=== PATIENT | female | born 1965 | race Caucasian/White ===

== ENCOUNTER 2016-12-02 07:00 | Day surgery (SDC) | payer OTHER ==
[~2016-12-02] VITALS: Ht 170.2 cm; Wt 103.9 kg
[2016-12-02] VITALS (10 sets, daily range): BP systolic 116–145; BP diastolic 66–92; PULSE 71–84; RESP 14–16; O2SAT 96–98
[~2016-12-02 07:00] MED LIST: MULT-666 PO; NAPR220C11 PO
[2016-12-02] MEDS ORDERED: 0.9% Sodium Chloride 1,000 ML IV PRN (07:36)
[2016-12-02] MEDS ORDERED: fentaNYL-PF 50 mCg/mL 2 mL Inj IVPUSH PRN (07:40)
[2016-12-02] MEDS ORDERED: Sodium Chloride LOK Flush 10 mL Syringe IV PRN (07:40)
--- NOTE | 2016-12-02 13:20 | ENDO ---
[address] [address] ENDOSCOPY PROCEDURE PATIENT: PEYTON LEONE : 1965 MR#: [id number] ADMIT: 12/02/2016 JOB ID: [id number] DATE: 12/02/2016 OPERATION: 1. Esophagogastroduodenoscopy with biopsy. 2. Colonoscopy with biopsy. PREOPERATIVE DIAGNOSIS(ES): 1. Epigastric pain. 2. Diarrhea. POSTOPERATIVE DIAGNOSIS(ES): 1. Normal upper endoscopy, status post biopsy. 2. A 2 mm descending colon polyp, removed by cold biopsy forceps. ANESTHESIA: 1. Fentanyl 150 mcg. 2. Versed 7 mg IV administered. COMPLICATIONS: None. BLOOD LOSS: Minimal. DESCRIPTION OF PROCEDURE: After risks and benefits were explained to the patient, informed consent was obtained. After anesthesia administered, upper endoscope was inserted in mouth and intubated to the esophagus, stomach, second portion of duodenum, and mucosa carefully examined. After procedure was done, the scope was withdrawn and the procedure terminated. Colonoscope was inserted from the rectum to terminal ileum and mucosa carefully examined. Prep of the patient was excellent. After procedure was done, the scope withdrawn and procedure terminated. FINDINGS: Upon inspection of the esophagus, esophagus was normal without masses, ulcers, or lesions. Z-line located at 40 cm from incisors. Upon entering the stomach, the stomach was also normal without masses, ulcers, or lesions. Retroflexion was normal. Duodenal bulb, first and second portion were normal. Biopsies taken of duodenum, antrum, and body of stomach. Upon inspection of the anus, no masses, hemorrhoids, ulcers, or fissures were seen throughout the entire examination. There was a 2 mm ascending colon polyp removed by cold biopsy forceps. Biopsies taken internal and random colon. Retroflexion was normal. IMPRESSIONS: 1. Normal upper endoscopy, status post biopsy. 2. A 2 mm right ascending colon polyp removed by cold biopsy forceps. RECOMMENDATIONS: Await pathology results. If tubular adenoma, then repeat colonoscopy in five years. Follow up with Nickie Lee PA-C, as an outpatient in GI clinic.
--- NOTE | 2016-12-06 10:58 | PATH ---
SURGICAL PATHOLOGY Attending Physician:José Miguel Leslie MD CASE STATUS: Signed Out PATIENT NAME: PYETON LEONE PID: [id number] : 1965 DATE COLLECTED:12/02/2016 19:15 SPECIMEN: 1: Duodenum, Biopsy 2: Stomach, Antrum, Biopsy 3: Gastric, Biopsy 4: Ileum, Biopsy 5: Colon, Biopsy 6: Colon, Biopsy CLINICAL HISTORY: DIARRHEA 1). DUODENUM BIOPSY 2). ANTRUM BIOPSY 3). GASTRIC BODY BIOPSY 4). TERMIANL ILEUM BIOPSY 5). ASCENDING COLON POLYP 6). RANDOM COLON BIOPSY FINAL DIAGNOSIS: 1. Duodenum, Biopsy: Small bowel mucosa with no diagnostic abnormality. Negative for active inflammation, features of sprue, dysplasia, and malignancy. 2. Stomach, Antrum, Biopsy: Antral mucosa with no diagnostic abnormality. Negative for Helicobacter organisms. Negative for intestinal metaplasia. Negative for dysplasia or malignancy. 3. Stomach, Body, Biopsy: Body-type mucosa with mild chronic gastritis, without active inflammation. Negative for Helicobacter organisms by immunohistochemistry. Negative for intestinal metaplasia. Negative for dysplasia and malignancy. 4. Terminal Ileum Biopsy: Small bowel with no diagnostic abnormality. Negative for active inflammation, dysplasia, and malignancy. 5. Ascending Colon, Polyp, Biopsy: Tubular adenoma. 6. Random Colon, Biopsies: Colonic mucosa with no diagnostic abnormality. Negative for active, chronic and microscopic colitis. Negative for dysplasia and malignancy. ICD10: R10.9 D12.2 GROSS DESCRIPTION: Received are six formalin-filled containers, each labeled with the patient' s name. 1. Received in formalin, labeled with the patient' s name and "duodenum BX", is one fragment of branch, soft tissue measuring 0.2 x 0.1 x 0.1 cm. The fragment is totally submitted in cassette 1A. 2. Received in formalin, labeled with the patient' s name and "antrum BX", are two fragments of branch, soft tissue ranging in size from 0.2 x 0.1 x 0.1 cm to 0.4 x 0.2 x 0.1 cm. All fragments are totally submitted in cassette 2A. 3. Received in formalin, labeled with the patient' s name and "gastric body BX", is one fragment of branch, soft tissue measuring 0.3 x 0.2 x 0.1 cm. The fragment is totally submitted in cassette 3A. 4. Received in formalin, labeled with the patient' s name and "TI BX", are two fragments of branch, soft tissue ranging in size from 0.1 x 0.1 x 0.1 cm to 0.3 x 0.1 x 0.1 cm. All fragments are totally submitted in cassette 4A. 5. Received in formalin, labeled with the patient' s name and "ascending colon polyp", is one fragment of branch, soft tissue measuring 0.1 x 0.1 x 0.1 cm. The fragment is totally submitted in cassette 5A. 6. Received in formalin, labeled with the patient' s name and "random colon BX", are five fragments of branch, soft tissue ranging in size from 0.1 x 0.1 x 0.1 cm to 0.3 x 0.2 x 0.1 cm. All fragments are totally submitted in cassette 6A. (RL:[id number]) MICRO DESCRIPTION: 3.An immunohistochemical stain was performed to evaluate for Helicobacter organisms and is negative. A control stain showed appropriate reactivity. This test was developed and its performance characteristics determined by [employer]. It has not been cleared or approved by the U. S. Food and Drug Administration. The FDA has determined that such clearance or approval is not necessary. This test is used for clinical purposes. It should not be regarded as investigational or for research. ICD-9 CODES: CPT CODES: 1: 67198 2: 58686 3: 56510, 51168 4: 35385 5: 96777 6: 00351 Electronically Signed Out Raiza Webster MD [facility] [address], [place] [address] Technical component performed at [facility], [address], [place], [address]
[2017-01-19] MEDS ORDERED: MULT-1018 PO (11:06)
[2017-01-19] MEDS ORDERED: CHOL10008 PO (11:06)
[2017-01-19] MEDS ORDERED: DOCO1CAP3 PO (11:06)
[2017-01-19] MEDS ORDERED: vitamin c (11:06)
== END 2016-12-02 23:59 | disposition home or self-care (01) ==
LOC: END 07:00
PROVIDERS: ATTEND Internal Medicine Gastroenterology
DX: K29.50 Unspecified chronic gastritis without bleeding (principal); D12.2 Benign neoplasm of ascending colon; R19.7 Diarrhea, unspecified; R10.13 Epigastric pain; K21.9 Gastro-esophageal reflux disease without esophagitis
CPT/HCPCS: 43239; 45380; 99153; G0500; J7030

== ENCOUNTER 2017-01-20 08:47 | Day surgery (SDC) | payer OTHER ==
[~2017-01-20] VITALS: Ht 171.4 cm; Wt 101.6 kg
[2017-01-20] VITALS (9 sets, daily range): BP systolic 128–172; BP diastolic 72–99; PULSE 79–99; RESP 11–16; O2SAT 97–100
[~2017-01-20 08:47] MED LIST changes: +CHOL10008 PO; +DOCO1CAP3 PO; +Lactated Ringer's 1,000 ML IV ONE; +MULT-1018 PO; -MULT-666 PO; -NAPR220C11 PO; +vitamin c
[2017-01-20] MEDS ORDERED: Propofol 10,000 mCg/mL 20 mL Inj ONE (08:48)
[2017-01-20] MEDS ORDERED: Lidocaine PF 1% 30 mL Inj ONE (08:48)
[2017-01-20] MEDS ORDERED: Dexamethasone 4 mg/mL Inj ONE (08:48)
[2017-01-20] MEDS ORDERED: Ondansetron 2 mg/mL 2 mL Inj ONE (08:48)
[2017-01-20] MEDS ORDERED: Succinylcholine Chloride 20 mg/mL 5 mL Inj ONE (08:48)
[2017-01-20] MEDS ORDERED: EPHEDrine/NS 5 mg/mL 5 mL Syringe ONE (08:48)
[2017-01-20] MEDS ORDERED: fentaNYL-PF 50 mCg/mL 2 mL Inj ONE (08:48)
[2017-01-20] MEDS ORDERED: Rocuronium 10 mg/mL 5 mL Inj ONE (08:48)
[2017-01-20] MEDS ORDERED: LEVO50TA6 PO (09:04)
[2017-01-20 10:29] LABS: BASOPHILS % (AUTO) 0.3 % (0-3); EOSINOPHILS % (AUTO) 2.5 % (0-5); MONOCYTES % (AUTO) 5.1 % (4-12); Mean Corpuscular Hemoglobin 27.9 pg (27.0-35.0); Mean Corpuscular Volume 90.7 fL (81-100); NEUTROPHILS % (AUTO) 66.3 % (40-74); Platelet Count 317 bil/L (150-400)
[2017-01-20 10:46] LABS: INR 0.91 ratio
--- NOTE | 2017-01-20 11:19 | DRSVH ---
PROCEDURE: US ABDOMEN, LIMITED ([id number]) INDICATIONS: evaluate for ascites TECHNIQUE: Real-time focused scanning was performed of the abdomen, with image documentation. COMPARISON: None. FINDINGS: No ascites found. IMPRESSION: No ascites found. Dictated by: Garry Shanks M.D. on 01/20/2017 at 11:17 Approved by: Garry Shanks M.D. on 01/20/2017 at 11:17
--- NOTE | 2017-01-20 11:58 | DRSVH ---
[facility] [address] [place] [address] Echocardiogram Report Name: PEYTON LEONE MStudy D ate: 01/20/2017 Height: 68 in Hospital Exam Location: [facility] Weight: 224 lb Gender: Female BSA: 2.1 m2 : 1965 Age: 51 yrs BP: 172/93 mmHg Reason For Study: [place] Ordering Physician: Giulia Cruz Performed By: Vinay Otto Referring Physician: Jocelyne Merino Interpretation Summary 1. Normal left ventricular size, wall thickness and systolic function with an estimated EF of 60 - 65% 2. Normal right ventricular size and systolic function 3. Mild aortic valve sclerosis without stenosis or insufficiency Procedure: A two-dimensional transthoracic echocardiogram with color flow and Doppler was performed. The study quality was technically adequate. There is no prior echocardiogram noted for this patient. The patient was in normal sinus rhythm during the exam. Left Ventricle: The left ventricle is normal in size. There is normal left ventricular wall thickness. The ejection fraction is estimated to be 60-65%. There are no focal wall motion abnormalities. Right Ventricle: The right ventricle is normal in size and function. Atria: Both atria are normal in size. The interatrial septum is intact with no evidence for an atrial septal defect. Mitral Valve: The mitral valve is normal in structure and function. There is trace mitral regurgitation. Aortic Valve: The aortic valve is trileaflet. The aortic valve opens well. Mild sclerotic changes. No aortic regurgitation is present. Tricuspid Valve: The tricuspid valve leaflets are thin and pliable. There is a trace or physiologic amount of tricuspid regurgitation. Pulmonary artery pressures cannot be estimated because of the lack of a measurable TR jet velocity. Pulmonic Valve: The pulmonic valve is normal in structure and function. There is trace pulmonic regurgitation. Great Vessels: The aortic root is normal size. The dimensions of the ascending aorta are normal. The pulmonary artery is normal size. The IVC is of normal diameter and collapses greater than 50% with a sniff. This suggests a low right atrial pressure of 3 mm Hg. Pericardium/ Pleura There is no pericardial effusion. There is no pleural effusion. MMode/2D Measurements & Calculations LVIDd: 4.5 cm LA dimension: 3.6 cm RA long axis LVOT diam: 2.1 cm LVIDs: 2.8 cm Ao root diam FS: 38.0 % LA A2 area: 18.1 cm RA area EPSS: 0.55 cm LA A4 area: 21.6 cm Aortic Jxn: 2.7 cm IVSd: 0.98 cm LA length (vol) : 15.2 cm asc Aorta Diam LVPWd: 0.92 cm RA vol LA vol: 63.3 ml : 41.1 ml Ao Arch Diam (Prox LA vol index RA Trans): 2.7 cm : 19.2 mm2 IVC diam: 1.6 cm LV reinoso. diameter/BSA LV sys. diameter/BSA (cm/m^2): 2.1 (cm/m^2): 1.3 Doppler Measurements & Calculations Ao V2 max MV E max good MV E/A: 0.76 PA V2 max : 137.8 cm/sec : 68.9 cm/sec Med Peak E' Good : 101.2 cm/sec Ao max P.6 mmHg MV A max good PA mean PG Ao mean P.5 mmHg : 90.0 cm/sec E/E' med: 10.6 LVOT Max Good Pulm A Revs Dur PA Accel Time : 102.5 cm/sec : 0.13 sec MV A dur FERNANDO(I,D): 2.6 cm : 0.11 sec sev ratio: 0.75 MV dec time: 0.16 secAo V2 mean LV V1 max PG PA V2 mean : 102.6 cm/sec : 78.8 cm/sec Ao V2 VTI: 29.7 cm LV V1 VTI PA pr(Accel) FERNANDO(V,D): 2.6 cm2 : 22.3 cm : 15.6 mmHg FERNANDO indexed to SUSANA Apple - SYBIL A (cm^2/m^2): 1.2 Dur: -0.04 msec Reading Physician:11:57 AM
[2017-01-20] MEDS ORDERED: Bupivacaine-MPF 0.5% W/EPI 30 mL Inj INFILTRATE ONE (12:21)
[2017-01-20] MEDS ORDERED: Lactated Ringer's 1,000 ML IV ONE ×2 (13:28→16:14)
[2017-01-20] MEDS ORDERED: oxyCODONE-Acetamin 5-325 mg Tablet PO PRN (16:40)
--- NOTE | 2017-01-20 16:42 | PCM.HPANE ---
Patient Data Surgeon Admitting Provider: Attending Provider:Giulia Cruz MD Primary Care Physician:Jocelyne Merino DO Other Provider:[facility]est[facility] Reason for Visit Benign Neoplasm Of Parathyroid Gland Ht/WT & BMI Height (Feet): 5 Height (Inches): 7.5 Weight (Kilograms): 101.6 Body Mass Index 34.00 Allergies Coded Allergies: aspirin (Verified Allergy, Severe, UPSET STOMACH, 01/20/17) Past Anesthesia History Anesthesia History: Denies:: Abnormal Airway, Anesthesia Reactions, Difficult Intubation, Fam Anesthesia Reaction, Fam Malignant Hypertherm, Malignant Hyperthermia Diabetes History Hx Diabetes?: No MRSA MRSA: No Medications Hypertension Medication: No Home Meds Incl Beta Santi: No Reported Medications Levothyroxine 50 Mcg [id number] Mcg PO DAILY #30 01/20/17 Cholecalciferol (Vitamin D3) (Vitamin D3)1,000 Unit Tab.chew1,000 Unit PO DAILY 01/19/17 [vitamin c] No Conflict CheckUnknown Dose DAILY 01/19/17 Multivitamin (Multi Vitamin Daily)1 Each Tablet1 Each PO DAILY 30 Days Ref 0 01/19/17 Docosahexanoic Acid/Epa (Fish Oil Concentrate Softgel)1 Each Capsule1 Each PO DAILY 01/19/17 Discontinued Reported Medications Multivitamin (Once Daily)1 Each Tablet1 Each PO DAILY 12/01/16 Naproxen Sodium (Aleve)220 Mg [id number] Mg PO BID PRN For Pain 12/01/16 History History of ENT Problems?: No HEENT History: Denies:: Abnormal Airway Cataracts Difficult Intubation Dysphagia Glaucoma Hearing Problem Sinus Problem TMJ Denture Type: None Teeth Condition: Within Normal Limits Hx of Heart Problems?: Yes Cardiovascular History: Positive for:: Heart Murmur (new onset murmur- echo not yet done) Denies:: AICD Abdominal Aortic Aneurism Atrial Fibrillation Chest Pain Congestive Heart Failure Coronary Artery Disease Edema Hypertension Pacemaker Peripheral Vascular Rheumatic Fever Thrombophlebitis Other History/Comments TTE unremarkable per Dr. Vann Hx of Respiratory Problem?: No Respiratory History: Denies:: Asthma COPD Emphysema Oxygen Administration Pneumonia Tuberculosis Use of C-PAP Machine Use of Inhalers / NEBS Hx Neurologic Problems?: Yes Neurological History: Positive for:: Headaches (recent onset ) Denies:: CVA Dizziness Multiple Sclerosis Parkinson's Disease Seizures TIA Hx of GI Problems?: Yes Other GI Pertinent History: excess abdominal fluid- feels tense/ 60 lb weight gain/ 6 mos Other History/Comment pre-op ab US was negative for ascites Hx of Problems?: No Genitourinary History: Denies:: Kidney Stones Urinary Tract Infection Female Hx: Denies:: Currently (neg test) Skin History: Denies:: History Skin Disorders? Pressure Ulcers Hx Musculoskeletal Problems?: Yes Musculoskeletal History: Positive for:: Musculoskeletal Trauma ("aches" all the time ) Denies:: Back Injury Degenerative Joint Fibromyalgia Joint Replacement Myasthenia Gravis Osteoarthritis Rheumatoid Arthritis Systemic Lupus Hx of Psycho/Social Problems?: Yes Psycho Social History: Positive for:: Anxiety (ptsd hx) Hx Surgeries?: Yes (gallbladder, , carpal tunnel) Hx Any Other Health Problems?: Yes Other History: Positive for:: Cancer (ovarian ca- hx , left breast suspicion of- being monitored) Denies:: Thyroid Disease (parathyroid current admission problem) History Blood Transfusions: Positive for:: Accept Blood Products? Blood Transfusions (1986) Hx Diabetes: No Hx Alcohol Use: NoHx Substance Use: No Smoking Status: Unknown if Ever Smoker Stop/Bang S-Snoring: Do You Snore Loudly: Yes T-Tired: feel tired, fatigued: Yes O-Obsered: Observed not breath: No P-Blood Pressure: treated: No B- Body Mass Index > 35 kg/m2: Yes A- Age over 50: Yes N- Neck Large Circumference: No G- Gender Male: No HOLLEY Total Score: 4 Risk Assessment Category Category 1A: Patient has history of documented sleep apnea, and HAS NOT received any narcotic, sedative or anesthesia administration during this stay. Category 1B: Patient has history of documented sleep apnea, and HAS received any narcotic , sedative or anesthesia administration during this stay Category 2: Patient has SUSPECTED Obstructive Sleep Apnea, and HAS received any narcotic , sedative or anesthesia administration during this stay. Category 3: Patient has SUSPECTED Obstructive Sleep Apnea and HAS NOT received narcotic, sedative or anesthesia administration during this stay. Category 4: Outpatient in Procedural Areas with known sleep apnea or who screen positive for High Risk via the STOP/BANG questionnaire. Exam Exam Vital Signs Vital Signs Date Time Temp Pulse Resp B/P Pulse Ox O2 Delivery O2 Flow Rate FiO2 01/20/17 09:12 36.2 79 16 172/93 98 Room Air General Appearance: Alert, Oriented X3 HEENT/AIRWAY: MP 2, Neck Movement (FROM) Lungs: Clear to Auscultation, Clear to Percussion Heart: Exam Unremarkable, Regular Rate/Rhythm Meds/Labs/Diagnostics Admission Meds Current Medications Lactated Ringer's (Lr) 1,000 ml @ 120 mls/hr Q8H20M ONCE IV Last administered on 01/20/17t 08:50; Start 01/20/17 at 08:00; Stop 01/20/17 at 16:19 Labs Test 01/20/17 10:13 White Blood Count 7.1th/mm3 (3.8-10.1) Red Blood Count 4.19mil/mm3 (3.90-5.20) Hemoglobin 11.7g/dL (12.0-15.6) Hematocrit 38.0% (35.0-46.0) Mean Corpuscular Volume 90.7fL (81-100) Mean Corpuscular Hemoglobin 27.9pg (27.0-35.0) Mean Corpuscular Hemoglobin Concent 30.8% (32.0-37.0) Red Cell Distribution Width 15.3% (12.3-15.4) Platelet Count 317bil/L (150-400) Neutrophils (%) (Auto) 66.3% (40-74) Lymphocytes (%) (Auto) 24.7% (14-46) Monocytes (%) (Auto) 5.1% (4-12) Eosinophils (%) (Auto) 2.5% (0-5) Basophils (%) (Auto) 0.3% (0-3) Prothrombin Time 9.7sec (8.1-12.5) Prothromb Time International Ratio 0.91ratio Sodium Level 140mEq/L (134-144) Potassium Level 4.6mEq/L (3.5-5.2) Chloride Level 104mEq/L (97-108) Carbon Dioxide Level 25mmol/L (18-29) Blood Urea Nitrogen 11mg/dL (6-24) Creatinine 0.72mg/dL (0.57-1.00) Estimat Glomerular Filtration Rate 123mL/min (>59) Glucose Level 95mg/dL (60-99) Calcium Level 10.5mg/dL (8.5-10.1) Total Bilirubin 0.2mg/dL (0.0-1.2) Aspartate Amino Transf (AST/SGOT) 31U/L (0-50) Alanine Aminotransferase (ALT/SGPT) 40U/L (0-32) Alkaline Phosphatase 68U/L (25-150) Total Protein 7.5g/dL (6.4-8.4) Albumin 4.0g/dL (3.4-5.0) Plan Impression Patient chart reviewed, patient interviewed and anesthestic plan with risks, benefits, and alternatives discussed, and informed consent obtained. ASA Physical Status: ASA3 Severe Disease (hyperparathyroidism with hypercalcemia) Anesthetic Plan: GA Bene/Risks/Altern/Consents: Yes HP Complete Prior to Induction: Yes Tay Montanez MD Jan 20, 2017 11:20
--- NOTE | 2017-01-20 16:43 | PCM.ANEP1 ---
Post Anesthesia PACU Phase 1 Assessment Vital Signs Vital Signs Date Time Temp Pulse Resp B/P Pulse Ox O2 Delivery O2 Flow Rate FiO2 01/20/17 09:12 36.2 79 16 172/93 98 Room Air Anesthetic Administered: GA Level of Alertness: Awake, talking SO's with Equal Strength: Yes Pain: No Nausea or Vomiting: No CV Function & Hydration Stable: Yes Airway Device: Endotrachial Tube Oxygen Delivery: Simple Mask Lungs: Clear to Auscultation, Clear to Percussion PACU Phase 2 Assessment Complications: No Follow up Care: No Patient Instructions Provided: N/A Tay Montanez MD Jan 20, 2017 16:42
[2017-01-20] MEDS ORDERED: Lactated Ringer's 1,000 ML IV SCH (17:09)
[2017-01-20] MEDS ORDERED: Lactated Ringer's 500 ML IV PRN (17:09)
[2017-01-20] MEDS ORDERED: HYDROmorphone 1 mg/mL Inj IVPUSH PRN (17:10)
[2017-01-20] MEDS ORDERED: Dexamethasone 4 mg/mL Inj IVPUSH PRN (17:10)
[2017-01-20] MEDS ORDERED: MetoCLOpramide 5 mg/mL 2 mL Inj IVPUSH PRN (17:10)
[2017-01-20] MEDS ORDERED: Phenylephrine 10,000 mCg/mL Inj IVPUSH PRN (17:10)
[2017-01-20] MEDS ORDERED: fentaNYL-PF 50 mCg/mL 2 mL Inj IVPUSH PRN (17:10)
[2017-01-20] MEDS ORDERED: Ondansetron 2 mg/mL 2 mL Inj IVPUSH PRN (17:10)
[2017-01-20] MEDS ORDERED: EPHEDrine Sulfate 50 mg/mL Inj IVPUSH PRN (17:10)
--- NOTE | 2017-01-21 06:16 | OP ---
[address] [address] OPERATIVE REPORT PATIENT: PEYTON LEONE : 1965 MR#: [id number] ADMIT: 01/20/2017 JOB ID: [id number] DATE OF SURGERY: 01/20/2017 PREOPERATIVE DIAGNOSIS(ES): Hyperparathyroidism due to parathyroid adenoma. POSTOPERATIVE DIAGNOSIS(ES): Hyperparathyroidism due to parathyroid adenoma. PROCEDURE PERFORMED: Resection of parathyroid adenoma with four gland exploration. SURGEON: Giulia Cruz MD SEWING MACHINE ATTACHMENT TESTER: Chase Veronica MD; Gil Reynoso MS3. An surgical first assistant was required for dissection and intraoperative decision making. HISTORY OF PRESENT ILLNESS: This is a 51-year-old woman who presented with vague abdominal pain and weight gain, and underwent a thorough endocrine workup, which revealed hyperparathyroidism and hypercalcemia, as well as mild hypothyroidism. She underwent sestamibi scan, CT scan, and ultrasound focus on the neck, and was found to have a parathyroid adenoma localized to the right near to and posterior to the inferior pole of the thyroid. FINDINGS: 1. The right inferior round piece of tissue was initially excised and thought to be a parathyroid adenoma. However, her parathyroid hormone level did not drop sufficiently, so a frozen specimen was ordered, which revealed thyroid tissue. 2. A four gland exploration showed a normal left superior parathyroid, which was marked with a Prolene stitch and biopsied. A left inferior parathyroid was thought to be identified within the thyro-thyroid ligament, which was removed. Although on frozen section, this was shown to be lymph node and adipose tissue, after resection of this portion of tissue, the parathyroid hormone level dropped from 195 prior to removal of any tissue, to 99 after removal of this portion of tissue. 3. A right superior parathyroid adenoma was identified, biopsied, and found to be hypercellular parathyroid tissue, and removed. Parathyroid hormone level after resection of this tissue dropped from 99 to 18. 4. A definitive right inferior parathyroid was not visually identified. Final pathology revealed it to be normal and contained within the original DESCRIPTION OF PROCEDURE: The patient was brought to the operating room and placed in supine position. General anesthesia had been induced. A warming blanket and SCDs were placed. A shoulder roll was placed. The patient was positioned into the beach chair position. The operative field was prepped and draped in a sterile fashion. A pre-procedural pause was performed to confirm the correct patient, procedure, and site. A transverse 2 cm incision was made following skin lines just below the cricoid cartilage. The platysma was divided and flaps were made. The strap muscles were divided in the midline. Dissection proceeded between the sternohyoid and sternothyroid muscle, and then between the thyroid and the sternothyroid muscle. Initially, a minimally invasive approach was planned, and therefore, the focus was on the inferior and posterior aspect of the thyroid gland, based on the location of the presumed adenoma on CT scan preoperatively. A candidate specimen was identified anterior to the spine and resected. Just prior to resecting it, a parathyroid hormone level was drawn, and was 195. Ten minutes after resecting this specimen, which was sent to Pathology as right superior parathyroid adenoma (it was called superior because of its posterior location, despite being behind the inferior aspect of the thyroid). A parathyroid hormone level drawn after this was removed dropped to 157. However, 10 minutes after that, at 1:22 p.m., it was 158. She was therefore considered to be not cured, and her neck was re-explored. The incision was extended to the right and to the left by another centimeter on each side. The right side was thoroughly explored, and another candidate for a right inferior parathyroid was not identified. However, a right superior parathyroid was identified. It was left in place as it had the initial appearance of thyroid tissue. The left side was explored. The right inferior aspect of the thyroid was examined, and what appeared to be a possible right inferior parathyroid was removed with the thyro-thyroid ligament. A frozen section on this tissue came back as two lymph nodes. However, after removing it, another parathyroid hormone level was drawn, and was found to be 99, a significant decrease from the pre-excision level. Right superior normal appearing parathyroid was identified, biopsied, found to be normal on frozen section, and marked with a 3-0 Prolene stitch. At this point in the procedure, a parathyroid adenoma was thought to have not yet been removed. Therefore, the right superior parathyroid that had been previously identified was resected. It measured 1.7 x 0.7 x 0.6 cm in size. It was sent for frozen section and found to contain hypercellular parathyroid tissue. This was thought to be the parathyroid adenoma. At this point, her PTH level had dropped to 99, as noted previously, and a thorough exploration had been performed. Care was taken throughout the dissection to perform mostly blunt dissection, with the exception of resection of the portions of tissue alone, which used small amounts of bipolar cautery close to those pieces of tissue in order to protect for the possibility of recurrent laryngeal nerve injury. The strap muscles were closed with 3-0 Vicryl. The platysma was closed with 3-0 Vicryl. The skin was closed with a running 4-0 Monocryl. Dermabond was placed. The patient was awakened from general anesthesia and taken to the postoperative care unit. ESTIMATED BLOOD LOSS: 10 mL. SPECIMENS: 1. Right superior parathyroid adenoma (on frozen section, this did not contain parathyroid tissue). 2. Left superior tissue (on frozen section, this contained normal parathyroid tissue). 3. Left inferior parathyroid tissue with the thyro-thyroid ligament (on frozen section this appeared to contain only lymph nodes). 4. Right superior posterior parathyroid, biopsied. 5. Right superior posterior parathyroid, entire parathyroid. [facility]
== END 2017-01-20 23:59 | disposition home or self-care (01) ==
LOC: SAS 08:47
PROVIDERS: ATTEND Surgery
DX: D35.1 Benign neoplasm of parathyroid gland (principal); E21.3 Hyperparathyroidism, unspecified; E06.9 Thyroiditis, unspecified; R01.1 Cardiac murmur, unspecified; E03.9 Hypothyroidism, unspecified; R63.5 Abnormal weight gain; K29.50 Unspecified chronic gastritis without bleeding; F41.9 Anxiety disorder, unspecified; Z85.43 Personal history of malignant neoplasm of ovary; Z86.010 Personal history of colon polyps; Z68.35 Body mass index [BMI] 35.0-35.9, adult
CPT/HCPCS: 36415; 60200; 60500; 76705; 80053; 83970; 85025; 85610; C8929; J0330; J1100; J2405; J3010; J7120